=== PATIENT | male | born 1980 | race Hispanic/Latino ===

== ENCOUNTER 2017-07-20 06:53 | Day surgery (SDC) | payer OTHER ==
[~2017-07-20] VITALS: Ht 157.5 cm; Wt 69.0 kg
--- NOTE | 2017-07-20 10:34 | NUR ---
07/20/17 1034 Vi Garcia 1028 PATIENT ARRIVES TO PACU UNRESPONSIVE TO VERBAL OR PAINFUL STIMULI. ORAL AIRWAY IN PLACE WITH JAW THRUST. RESP EVEN AND UNLABORED, NON-REBREATHER AT 15 LITERS ON ARRIVAL. 1030 PATIENT MAINTAINS AIRWAY WITH ORAL AIRWAY ALONE, NO MANUAL MANIPULATION NEEDED. SIMPLE MASK ON AT 6 LITERS. PATIENT OPENS EYES TO VERBAL STIMULI, THEN BACK TO SLEEP.
--- NOTE | 2017-07-20 10:54 | NUR ---
ICED WATER AND PUDDING GIVEN. OFFICER @ BS.
--- NOTE | 2017-07-20 10:58 | NUR ---
PT EATS PUDDING AND TOLERATES THAT WELL.
--- NOTE | 2017-07-20 13:05 | NUR ---
1220: PT UP TO BR W/OFFICER STANDBY. PT AMBULATES WELL AND REPORTS SUCCESSFUL VOID. HEAD OF MERCHANDISE BUYING, THU FROM THE PHYSICIAN CLINIC CAME TO TRANSLATE PATIENT'S DC INSTRUCTIONS. PATIENT'S QUESTIONS ARE ANSWERED AND HE VERBALIZES UNDERSTANDING.
--- NOTE | 2017-07-20 13:09 | NUR ---
CALL REPORT GIVEN TO CIERRA RUIZ AT [facility] AND HER QUESTIONS ARE ANSWERED.
--- NOTE | 2017-07-22 07:12 | OR ---
[facility] [address], [place] [address] Signed DATE OF OPERATION: 07/20/2017 SURGEON: Isabela Murray MD PREOPERATIVE DIAGNOSIS: Rotator cuff tear, right shoulder with impingement. POSTOPERATIVE DIAGNOSIS: Partial thickness rotator cuff tear, right shoulder with impingement. PROCEDURE: Shoulder arthroscopy, debridement of partial-thickness rotator cuff tear, and subacromial decompression. ANESTHESIA: General. SPECIMENS AND COMPLICATIONS: There were no specimens or complications. BLOOD LOSS: Minimal. WHAT WAS DONE: The patient was taken to the operating room and placed on the operating table in supine position. After anesthesia was induced and the airway secured, the patient was positioned, and prepped and draped in a modified beach chair position. The bony topography was outlined with a skin marking pen and the arthroscope was inserted through the standard posterior portal. Diagnostic arthroscopy of the shoulder joint revealed some fraying of the superior labrum with no discrete tears. The biceps tendon, the biceps anchor, the subscapularis were all unremarkable. There was mild fraying of the undersurface of the supraspinatus with no full-thickness tearing. An anterior portal was then created using a switching stick technique and the VAPR was introduced and the mild fraying of the labrum and the partial-thickness cuff tear were debrided. We then redirected the scope into the subacromial space making auxiliary lateral portal, through which we introduced the VAPR. There was a rather significant hemorrhagic bursitis in the subacromial pouch, which we debrided with a VAPR device. Once we had done the subacromial bursectomy, inspection of the outer surface of the rotator cuff did not reveal any tears on the bursal side. We therefore introduced a 4 mm bur through the lateral portal and I used it to do a generous subacromial decompression. The Electronically Signed By: ISABELA MURRAY MD 07/22/17 0712 PATIENT NAME: BERENICE SERNA OPERATIVE REPORT DATE OF : 80 REPORT #: [id number] PHYSICIAN: ISABELA MURRAY MD PCP: MARTITA MURRELL MD REPORT IS CONFIDENTIAL AND NOT TO BE RELEASED WITHOUT AUTHORIZATION [facility] [address], [place] [address] Signed subacromial space then irrigated and drained. The portals were closed and sterile dressings applied. The patient placed in a sling, awakened, and taken to the recovery room where he arrived in stable condition. Counts were correct and antibiotic protocols were followed. Isabela Murray MD WFB/MODL /[id number] Copies: ~ Electronically Signed By: ISABELA MURRAY MD 07/22/17 0712 PATIENT NAME: BERENICE SERNA OPERATIVE REPORT DATE OF : 80 REPORT #: [id number] PHYSICIAN: ISABELA MURRAY MD PCP: MARTITA MURRELL MD REPORT IS CONFIDENTIAL AND NOT TO BE RELEASED WITHOUT AUTHORIZATION
== END 2017-07-20 12:29 | disposition home or self-care (01) ==
LOC: OPS 06:53 → DS 06:53 → OPS 08:30
PROVIDERS: Orthopaedic Surgery
PROC: 0RNK4ZZ Release Left Shoulder Joint, Percutaneous Endoscopic Approach (ICD-10-PCS; 2017-07-20)
PROC: 0RBK4ZZ Excision of Left Shoulder Joint, Percutaneous Endoscopic Approach (ICD-10-PCS; principal; 2017-07-20 08:30)
DX: M75.111 Incomplete rotator cuff tear or rupture of right shoulder, not specified as traumatic (principal); M75.51 Bursitis of right shoulder; M25.811 Other specified joint disorders, right shoulder
CPT/HCPCS: 01630; 64415; 76942; J0690; J1100; J1885; J2250; J2405; J2704; J2765; J3010; J7120